=== PATIENT | male | born 1995 | race Caucasian/White ===

== ENCOUNTER 2016-09-05 12:29 | Emergency (ER) | payer OTHER ==
[~2016-09-05] VITALS: Ht 177.8 cm; Wt 113.0 kg
[2016-09-05 12:36] VITALS: TEMP 36.7; Ht 177.8 cm; Wt 113.0 kg
[2016-09-05] MEDS ORDERED: SODIUM CHLORIDE 0.9% 1000ML 1,000 ML IV STA (13:23)
[2016-09-05] MEDS ORDERED: LORAZEPAM 2 MG/ML 1 ML VIAL IV STA (13:23)
--- NOTE | 2016-09-05 13:30 | EMERGENCY ROOM VISIT NOTE ---
History First contact with patient: 13:10 Chief Complaint: CARDIAC ASSESSMENT Stated Complaint: HEART PALPITATIONS,ANXIETY,CAN'T SLEEP Nursing Triage Summary: pt here with feeling of irregular heart rate intermittently x mos. pt states caffeine makes it worse. pt denies cp, some sob. pt states cant sleep and feels anxious History of Present Illness The patient is a 21 year old male who presents to the Emergency Room with complaints of chest pain and palpitations. The patient states the symptoms have been intermittent for the last few months. The patient states that he feels a sensation of his heart racing. He states he occasionally has chest pain or shortness of breath with it. He states the caffeine makes it worse. He states if he stops and concentrates he can make it go away. He states that he feels anxious. He states that he recently started a new job and does not feel overtly anxious but considers the possibility of anxiety. The patient denies any pain currently. He denies any earache, sore throat, cough. He denies any abdominal pain, nausea or vomiting. He denies any weakness in the extremities. He has had what he describes as an odd sensation in his arms and legs. He denies any urinary symptoms. The patient states he has a history of a benign murmur. He denies any other medical history. Review of Systems A 10 system review of systems was completed with positives and pertinent negatives listed in the HPI. Past Medical/Surgical History Medical Problems: (1) Heart murmur Social History Smoking Status: Never Smoker Housing Status: lives with family Occupation Status: employed Current/Historical Medications Scheduled PRN Lorazepam (Ativan), 1 TAB PO Q6H PRN for Anxiety Physical Exam Vital Signs Date Time Temp Pulse Resp B/P Pulse Ox O2 Delivery O2 Flow Rate FiO2 09/05/16 15:59 09/05/16 15:35 80 18 163/80 98 Room Air 09/05/16 14:18 85 16 177/103 99 Room Air 09/05/16 13:05 89 09/05/16 12:36 36.7 93 16 176/107 100 Room Air Physical Exam VITALS: Vitals are noted on the nurse's note and reviewed by myself. Vital signs stable. The patient is afebrile. His heart rate is 93 bpm. His oxygen saturation is 100% on room air. GENERAL: This 21-year-old male, in no acute distress, nondiaphoretic, well- developed well-nourished. SKIN: The skin was without rashes, erythema, edema, or bruising. There is no tenting of the skin. Capillary reflex less than 2 seconds. HEAD: Normocephalic atraumatic. EARS: External auditory canals clear, tympanic membranes pearly velez without erythema or effusion bilaterally. EYES: Pupils equal round and reactive to light and accommodation. Conjunctivae without injection, sclerae without icterus. Extraocular movements intact. NOSE: Patent, turbinates without inflammation or discharge. MOUTH: Mucous membranes moist. Tonsils are not enlarged. Pharynx without erythema or exudate. Uvula midline. Airway patent. Tongue does not deviate. NECK: Supple without nuchal rigidity. No lymphadenopathy. No thyromegaly. Cervical spine is nontender. No JVD. HEART: Regular rate and rhythm without murmurs gallops or rubs. LUNGS: Clear to auscultation bilaterally without wheezes, rales or rhonchi. No retractions or accessory muscle use. ABDOMEN: Positive bowel sounds x 4. Soft, nontender, without masses or organomegaly. MUSCULOSKELETAL: No muscle atrophy, erythema, or edema noted. Full range of motion in all extremities. Normal gait. Strength 5/5 throughout. NEURO: Patient was alert and oriented to person place and time. No focal neurological deficits. Medical Decision & Procedures ER Provider Diagnostic Interpretation: CHEST ONE VIEW PORTABLE CLINICAL HISTORY: Atypical chest pain COMPARISON STUDY: No previous studies for comparison. FINDINGS: The cardiac and mediastinal contours are normal. There is no evidence of focal pulmonary consolidation. There is no evidence of failure. No pleural effusions are visualized.[ IMPRESSION: No active disease in the chest. Laboratory Results 09/05/16 14:10 Red Blood Count 4.18, Mean Corpuscular Volume 91.4, Mean Corpuscular Hemoglobin 34.0, Mean Corpuscular Hemoglobin Concent 37.2, Mean Platelet Volume 9.1, Neutrophils (%) (Auto) 89.2, Lymphocytes (%) (Auto) 6.3, Monocytes (%) (Auto) 4.2, Eosinophils (%) (Auto) 0.0, Basophils (%) (Auto) 0.0, Neutrophils # (Auto) 11.39, Lymphocytes # (Auto) 0.81, Monocytes # (Auto) 0.54, Eosinophils # (Auto) 0.00, Basophils # (Auto) 0.00 09/05/16 14:10 Test 09/05/16 13:38 09/05/16 14:10 Urine Color YELLOW Urine Appearance CLEAR (CLEAR) Urine pH 8.0 (4.5-7.5) Urine Specific [place] 1.007 (1.000-1.030) Urine Protein NEG (NEG) Urine Glucose (UA) NEG (NEG) Urine Ketones NEG (NEG) Urine Occult Blood NEG (NEG) Urine Nitrite NEG (NEG) Urine Bilirubin NEG (NEG) Urine Urobilinogen NEG (NEG) Urine Leukocyte Esterase NEG (NEG) White Blood Count 12.78 K/uL (4.8-10.8) Red Blood Count 4.18 M/uL (4.7-6.1) Hemoglobin 14.2 g/dL (14.0-18.0) Hematocrit 38.2 % (42-52) Mean Corpuscular Volume 91.4 fL (80-100) Mean Corpuscular Hemoglobin 34.0 pg (25-34) Mean Corpuscular Hemoglobin Concent 37.2 g/dl (32-36) Platelet Count 295 K/uL (130-400) Mean Platelet Volume 9.1 fL (7.4-10.4) Neutrophils (%) (Auto) 89.2 % Lymphocytes (%) (Auto) 6.3 % Monocytes (%) (Auto) 4.2 % Eosinophils (%) (Auto) 0.0 % Basophils (%) (Auto) 0.0 % Neutrophils # (Auto) 11.39 K/uL (1.4-6.5) Lymphocytes # (Auto) 0.81 K/uL (1.2-3.4) Monocytes # (Auto) 0.54 K/uL (0.11-0.59) Eosinophils # (Auto) 0.00 K/uL (0-0.5) Basophils # (Auto) 0.00 K/uL (0-0.2) RDW Standard Deviation 40.5 fL (36.4-46.3) RDW Coefficient of Variation 12.2 % (11.5-14.5) Immature Granulocyte % (Auto) 0.3 % Immature Granulocyte # (Auto) 0.04 K/uL (0.00-0.02) Prothrombin Time 11.4 SECONDS (9.0-12.0) Prothromb Time International Ratio 1.1 (0.9-1.1) Activated Partial Thromboplast Time 30.0 SECONDS (21.0-31.0) Partial Thromboplastin Ratio 1.2 D-Dimer < 190 ug/L FEU (0-500) Anion Gap 9.0 mmol/L (3-11) Est Creatinine Clear Calc Drug Dose 131.5 ml/min Estimated GFR () 109.1 Estimated GFR (Non- 94.1 BUN/Creatinine Ratio 6.6 (10-20) Calcium Level 9.9 mg/dl (8.5-10.1) Total Bilirubin 0.5 mg/dl (0.2-1) Aspartate Amino Transf (AST/SGOT) 18 U/L (15-37) Alanine Aminotransferase (ALT/SGPT) 27 U/L (12-78) Alkaline Phosphatase 103 U/L (45-117) Total Creatine Kinase 99 U/L (39-308) Creatine Kinase MB < 0.5 ng/ml (0.5-3.6) Creatine Kinase MB Ratio (0-3.0) Troponin I < 0.015 ng/ml (0-0.045) Total Protein 8.6 gm/dl (6.4-8.2) Albumin 4.4 gm/dl (3.4-5.0) Globulin 4.2 gm/dl (2.5-4.0) Albumin/Globulin Ratio 1.0 (0.9-2) Lipase 109 U/L (73-393) Thyroid Stimulating Hormone (TSH) 0.939 uIu/ml (0.300-4.500) Medications Administered Medications (Trade) Dose Ordered Sig/Evelyn Route Start Time Stop Time Status Last Admin Dose Admin Sodium Chloride (Nss 1000ml) 1,000 ml @ 999 mls/hr Q1H1M STAT IV 09/05/16 13:23 09/05/16 14:23 DC 09/05/16 14:16 999 MLS/HR Lorazepam (Ativan Inj) 0.5 mg NOW STAT IV 09/05/16 13:23 09/05/16 13:26 DC 09/05/16 14:18 0.5 MG Procedure The patient was monitored on a bus driver/monitor. They maintained a normal sinus rhythm without ectopy. ECG Indication: chest pain Rate (beats per minute): 85 Rhythm: normal sinus Findings: no acute ischemic change Comparison ECG Date: no prior available ED Course The patient was seen and examined. Previous visits were reviewed. The patient does not have a fever. He does have a leukocytosis of 12.78. He does not have any significant electrolyte abnormalities. Troponin is not elevated. Lipase is not elevated. TSH is normal. INR was 1.1. D-dimer is negative. Urinalysis was negative. Chest x-ray is negative The patient was hydrated with normal saline solution. He was given 0.5 mg IV Ativan. He states that he felt:. His blood pressure was improved when rechecked. The patient has had chest pain and shortness of breath. The patient has felt very anxious. The above workup does not reveal any obvious abnormality. He will be given a very small prescription for Ativan. He should contact a family doctor to schedule a follow-up appointment next week. He may need an outpatient echocardiogram for further evaluation and management. He should return to the ER with any worsening symptoms. The case was discussed with Dr. Jo who agrees with the assessment and management plan Medical Decision DIFFERENTIAL DIAGNOSIS: Aortic dissection, myocarditis, pericarditis, cervical disc disease, costochondritis, herpes zoster, rib fracture, pleuritis, pneumonia , pulmonary embolus, tension pneumothorax, anxiety disorder, somatoform disorder , choledocholithiasis, status, esophagitis, esophageal spasm, esophageal reflux , esophageal rupture, pancreatitis, peptic ulcer disease, cardiac ischemia, ST elevation MA, acute coronary syndrome, arrhythmia, coronary artery vasospasm. vavular heart disease, coronary artery disease, among others. Impression Primary Impression: Precordial chest pain Additional Impression: Anxiety Departure Information Dispostion Home / Self-Care Condition GOOD Prescriptions Lorazepam (ATIVAN) 1 Mg Tab 1 TAB PO Q6H Y for Anxiety for 3 Days, #12 TAB Prov: Gaby Morin PA-C 09/05/16 Patient Instructions Anxiety Body Response, Chest Pain - [facility] Additional Instructions Try the Ativan only at night if needed for anxiety Contact a family doctor to schedule a follow-up appointment for further evaluation and management. You may need an outpatient echocardiogram for further evaluation and management. Return with any worsening symptoms Problem Qualifiers
[2016-09-05 13:57] LABS: URINE APPEARANCE CLEAR (CLEAR); URINE BILIRUBIN NEG (NEG); URINE COLOR YELLOW; URINE NITRITE NEG (NEG); URINE SPECIFIC GRAVITY 1.007 (1.000-1.030); UROBILINOGEN NEG (NEG); ZZUR CULT IF INDIC CLEAN CATCH NO
--- NOTE | 2016-09-05 14:02 | DIAGNOSTIC IMAGING REPORT ---
CHEST ONE VIEW PORTABLE CLINICAL HISTORY: Atypical chest pain COMPARISON STUDY: No previous studies for comparison. FINDINGS: The cardiac and mediastinal contours are normal. There is no evidence of focal pulmonary consolidation. There is no evidence of failure. No pleural effusions are visualized.[ IMPRESSION: No active disease in the chest. Electronically signed by: Denys Estevez M.D. 09/05/2016 2:01 PM Dictated Date/Time: 09/05/2016 1:57 PM
[2016-09-05 14:04] LABS: MANUAL MICROSCOPIC REQUIRED? NO; REVIEW REQ? NO
[2016-09-05 14:28] LABS: COMPLETE YES; HEMATOCRIT 38.2 % (42-52); IG% 0.3 %; LYMPH % 6.3 %; LYMPH ABS # 0.81 K/uL (1.2-3.4); MEAN CELL VOLUME 91.4 fL (80-100); MEAN CORPUSCULAR HGB CONC 37.2 g/dl (32-36); MEAN PLATELET VOLUME 9.1 fL (7.4-10.4); MONO % 4.2 %; NEUT % 89.2 %; PLATELET COUNT 295 K/uL (130-400); RED BLOOD COUNT 4.18 M/uL (4.7-6.1); WHITE BLOOD COUNT 12.78 K/uL (4.8-10.8)
[2016-09-05 14:42] LABS: ALT/SGPT 27 U/L (12-78); BLOOD UREA NITROGEN 7 mg/dl (7-18); BUN/CREATININE RATIO 6.6 (10-20); CALCIUM 9.9 mg/dl (8.5-10.1); CARBON DIOXIDE 26 mmol/L (21-32); CHLORIDE 107 mmol/L (98-107); GLUCOSE 110 mg/dl (70-99); POTASSIUM 3.5 mmol/L (3.5-5.1); SODIUM 142 mmol/L (136-145)
[2016-09-05 14:51] LABS: INR 1.1 (0.9-1.1); PARTIAL THROMBOPLASTIN RATIO 1.2; PROTHROMBIN TIME (PATIENT) 11.4 SECONDS (9.0-12.0)
[2016-09-05 14:52] LABS: ALKALINE PHOSPHATASE 103 U/L (45-117); AST/SGOT 18 U/L (15-37); THYROID STIMULATING HORMONE 0.939 uIu/ml (0.300-4.500)
[2016-09-05 15:35] VITALS: BP 163/80; PULSE 80; O2SAT 98
[2016-09-05] MEDS ORDERED: ATV/1 PO (15:39)
== END 2016-09-05 16:05 | disposition home or self-care (01) ==
LOC: C.EDB 12:31 → C.EDC 16:05
DX: R07.2 Precordial pain (principal); F41.9 Anxiety disorder, unspecified; Z79.899 Other long term (current) drug therapy